=== PATIENT | female | born 1960 | race African-American/Black ===

== ENCOUNTER → 2023-08-17 08:47 | Outpatient (REF) | payer OTHER, SELFPAY | LOC: WDC 08:47 | PROVIDERS: ATTENDING PHYSICIAN Obstetrics & Gynecology; FAMILY PHYSICIAN Family Medicine | DX: Z12.31 Encounter for screening mammogram for malignant neoplasm of breast (principal) | CPT/HCPCS: 77063; 77067 ==

== ENCOUNTER → 2023-10-22 10:00 | Outpatient (REF) | payer OTHER, SELFPAY | LOC: WDC 10:00 | PROVIDERS: ATTENDING PHYSICIAN Surgery; FAMILY PHYSICIAN Family Medicine | DX: R92.2 Inconclusive mammogram (principal) | CPT/HCPCS: 76641 ==

== ENCOUNTER → 2023-10-23 08:04 | Outpatient (REF) | payer OTHER, SELFPAY | LOC: RAD 08:04 | PROVIDERS: ATTENDING PHYSICIAN Internal Medicine; FAMILY PHYSICIAN Family Medicine | DX: I10 Essential (primary) hypertension (principal) | CPT/HCPCS: 93975 ==

== ENCOUNTER 2023-11-26 10:05 | Emergency (ER) | payer OTHER, SELFPAY ==
[2023-11-26 10:12] VITALS: BP 140/78
--- NOTE | 2023-11-26 11:14 | ED.GENMED ---
History of Present Illness
General
Chief Complaint: Extremity Pain (non-traumatic)
Source: patient
Exam Limitations: none
Time Seen by Provider: 11/26/23 10:43
Nursing documentation reviewed up to this point in time: agreed with
History of Present Illness
History of Present Illness:
63 y/o F with h/o previous L TKR 1 year ago
fhx of dvt
here with left posterior knee pain x 1 month, worsening and last night she had some tingling in her toes while she was lying down so she got concerned since the pain is worsening that she could have a blood clot
no cp, sob, fever, redness, swelling
pt does have h/o varicose veins
she also has h/o patten's cyst
Past History
Past History
ED Past Medical History: HTN (atenolol 25 mg daily) and Other (Seasonal allergies , ovarian cyst)
ED Past Surgical History: Gynecological (In vitro procedures)
Social History
Tobacco: Non-smoker
Alcohol: Occasional
Personal:
Living: with family
Employment: Employed
Family History
Family History: Hypertension; Negative Diabetes, Early CAD, Asthma, Cancer or Sudden
Review of Systems
Review of Systems
Allergies reviewed?: Yes
All Other Systems: Not applicable
Phy Exam
Physical Exam
Physical Exam:
GENERAL: Alert , in no apparent distress, comfortable at rest
HEAD: NCAT
CV: 2+ DP PULSES B/L, regular, no edema
NEUROLOGICAL: Alert and oriented, no focal neuro deficits, , 5/5 strength, sensation intact, ambulation slight limp right leg
SKIN: Warm and dry, no skin changes, incision b/l anterior knees are well healed
MUSCULOSKELETAL: left knee normal inspection
no appreciated swelling
some varicosities posterior knee but nontnedner, do not suspect phlebitis
calf nontender
no swelling
perfused
normal pulse
nomral distal sensation
knee full rom
PSYCH: Normal and appropriate interaction.
Course
Orders/Labs/Results
Orders:
Orders
11/26/23 11:10
Bedside Glucose- Treatment ONCE
Venous Doppler Lwr Ext Left [US Periph Venous LOWER Ext LT] Urgent
Comment:
Reason For Exam: left post knee pain; eval dvt vs. bakers cyst
Vital Signs
Initial and Last Documented VS:
Initial Vital Signs
Temp Pulse Resp BP Pulse Ox
98.2 F 68 20 140/78 97
11/26/23 10:12 11/26/23 10:12 11/26/23 10:12 11/26/23 10:12 11/26/23 10:12
Last Documented Vital Signs
Temp Pulse Resp BP Pulse Ox
98.2 F 68 20 140/78 97
11/26/23 10:12 11/26/23 10:12 11/26/23 10:12 11/26/23 10:12 11/26/23 10:12
MDM/Problems Addressed
Differential Diagnosis Includes:
patten's cyst, dvt
MDM/Problems Addressed:
63 y/o F posterior left knee pain x 1 month, has varicose vein there chronically, no significant swelling but the pain seemed to be worsening and then she got some tingling in her foot last night so she wanted to be r/o for dvt which her mother had
h/o
pt has not had any cp, sob, leg sweling, color change, persitent parestehsais, cold foot
no exertional pain in her leg like claudication
just had blood work last week, no diabetes
on exam inspectio normal
mild tenderess posterior knee
normal pulse
nomral color
nontender calf
US shows a patten's cyst complex
no dvt
pt declined the accucheck becuase she had normal blood work last week
recommend compression with sean wrap
f/u with ortho outpatient.
*Critical Care Note
Total Time (30-74mins, 75-104mins- exclusive of procedures): Not Applicable
ED Attending Note
-
Portions of this chart may have been created with voice recognition software.� Occasional wrong word or��sound alike� substitutions may have occurred due to the inherent limitations of voice recognition software.
Discharge Plan
Departure
Patient Disposition: Home (Routine Discharge)
Date of Disposition: 11/26/23
Time of Disposition: 12:19
Patient with high blood pressure during this ER visit?: Yes
Condition: Fair
Covid-19: Not Applicable
Discharge Problem:
Patten's cyst of knee
Instructions: Patten's Cyst (DC)
Prescriptions:
No Action
atenolol 25 MG tablet
25 mg PO DAILY
hydrochlorothiazide 12.5 MG capsule
12.5 mg PO DAILY
ascorbic acid (vitamin C) [Vitamin C] 1,000 MG tablet
1,000 mg PO BID
flaxseed oil 1,000 MG capsule
1,000 mg PO DAILY
vitamin B complex 1 EACH tablet
1 ea PO DAILY
zinc 50 MG tablet
50 mg PO BID
cholecalciferol (vitamin D3) [Vitamin D3] 1,000 UNIT tablet
1,000 unit PO DAILY
Referrals:
Anjali Hassan MD [Family Provider] - Follow up in 5-7 days
Activity Restrictions/Additional Instructions:
You have a complex Patten's cyst in the posterior fossa of your left knee. You should touch base with your orthopedist regarding this. In the meantime you can use an Sean wrap to compress it. Warm compresses off-and-on and ibuprofen if you tolerate
it. Otherwise Tylenol for pain. Return for any concerns. Your ultrasound was negative for blood clot
Interventions
Interventions:
*Risk Screen - Suicide Last Done: 11/26/23 10:12
*General Assessment Last Done: 11/26/23 10:12
*Neglect/Abuse Screening Last Done: 11/26/23 10:12
ED- Fall Risk Assessment Last Done: 11/26/23 12:40
*ED COVID-19 Vaccine History Last Done: 11/26/23 12:40
*Nursing Disposition Last Done: 11/26/23 12:40
ED-Skin Assessment Last Done: 11/26/23 12:39
ED-Peripheral Vascular Assessment Last Done: 11/26/23 12:39
ED- Pulmonary Assessment Last Done: 11/26/23 12:39
ED-Musculoskeletal Assessment Last Done: 11/26/23 12:39
ED- Cardiac Assessment Last Done: 11/26/23 12:39
Discharge Date and Time
Discharge Date/Time: 11/26/23 12:41
Print Language: LUX[place]
== END 2023-11-26 12:41 | disposition home or self-care (01) ==
LOC: EMR 10:05
PROVIDERS: EMERGENCY PHYSICIAN Emergency Medicine; FAMILY PHYSICIAN Family Medicine
DX: M71.22 Synovial cyst of popliteal space [Baker], left knee (principal); R20.2 Paresthesia of skin; M79.605 Pain in left leg; I10 Essential (primary) hypertension; I83.92 Asymptomatic varicose veins of left lower extremity
CPT/HCPCS: 99284; 93971

== ENCOUNTER 2024-01-25 09:09 | Emergency (ER) | payer OTHER, SELFPAY ==
[2024-01-25 09:22] VITALS: BP 148/80
[2024-01-25 10:14] VITALS: BMI 25.9
--- NOTE | 2024-01-25 10:32 | ED.GENMED ---
History of Present Illness
General
Chief Complaint: Back Pain
Source: patient
Exam Limitations: none
Time Seen by Provider: 01/25/24 10:09
Nursing documentation reviewed up to this point in time: agreed with
History of Present Illness
History of Present Illness:
Patient is a 63-year-old female who presents with pain across her lower back. She noticed this about 1 week ago she believes she may have woken up this way and is not sure if she slept wrong. She denies any actual injury. It is worse with
movement if she does not move she does not feel the pain. She denies any lower extremity radiation. Denies any incontinence of bowel or bladder. She denies any other frequency urgency or dysuria. Denies hematuria. Denies any fever or chills.
She has been taken naproxen. She also has been using heating pad and reports that heating pad seems to work.
She has not taking anything for pain today.
Past History
Past History
ED Past Medical History: HTN (atenolol 25 mg daily) and Other (Seasonal allergies , ovarian cyst)
ED Past Surgical History: Gynecological (In vitro procedures)
Social History
Tobacco: Non-smoker
Alcohol: Occasional
Personal:
Living: with family
Employment: Employed
Family History
Family History: Hypertension; Negative Diabetes, Early CAD, Asthma, Cancer or Sudden
Review of Systems
Review of Systems
Allergies reviewed?: Yes
All Other Systems: ROS reviewed and negative except as documented in HPI and ROS
Constitutional: Reports no symptoms; Denies fever
ABD/GI: Reports no symptoms
: Denies incontinence
Musculoskeletal: Reports back pain (pain across lower back )
Skin: Reports no symptoms
Neurological: Reports no symptoms; Denies numbness
Psychiatric: Reports no symptoms
Phy Exam
General Physical Exam
General Presentation: no apparent distress
General age: appears stated age
General Skin: warm and dry
General Habitus: normal
General Mental: alert
General Hydration: appears well hydrated
Neurological Exam
Neurological Exam: alert and oriented x3
Musculoskeletal Exam
Musculoskeletal Exam: other (Normal inspection to lookback coordinator to b/l lumbar muscles )
Skin Exam
Skin Exam: normal color and warm/dry
Psychiatric Exam
Psychiatric Exam: normal mood/affect
Course
Orders/Labs/Results
Orders:
Orders
01/25/24 10:31
Ketorolac [Toradol] 30 mg IM NOW STA
Lidocaine [Lidocaine 4% Patch] 1 patch TOPICAL NOW STA
Apply Lidocaine patch(s) to:: low back
01/25/24 10:32
Acetaminophen [Tylenol] 1,000 mg PO NOW STA
01/25/24 11:02
Lumbar Spine Complete, 4 View [CR Lumbar Spine Comp Min 4 Vw*] Urgent
Comment:
Reason For Exam: pain
Vital Signs
Initial and Last Documented VS:
Initial Vital Signs
Temp Pulse Resp BP Pulse Ox
98.0 F 57 20 148/80 99
01/25/24 09:22 01/25/24 09:22 01/25/24 09:22 01/25/24 09:22 01/25/24 09:22
Last Documented Vital Signs
Temp Pulse Resp BP Pulse Ox
98.2 F 57 17 152/84 99
01/25/24 12:42 01/25/24 12:42 01/25/24 12:42 01/25/24 12:42 01/25/24 09:22
MDM/Problems Addressed
Differential Diagnosis Includes:
Not limited to lumbar strain muscle spasm
MDM/Problems Addressed:
Symptoms are consistent with muscle pain of lumbar region. Patient feeling much better here in the ER after medicated for s/s . will d/c on muscle relaxer as needed
*Pulse Oximetry
Patient hypoxic: no
*Critical Care Note
Total Time (30-74mins, 75-104mins- exclusive of procedures): Not Applicable
ED Attending Note
-
Portions of this chart may have been created with voice recognition software.� Occasional wrong word or��sound alike� substitutions may have occurred due to the inherent limitations of voice recognition software.
Discharge Plan
Departure
Patient Disposition: Home (Routine Discharge)
Date of Disposition: 01/25/24
Time of Disposition: 12:32
Patient with high blood pressure during this ER visit?: Yes
Condition: Fair
Covid-19: Not Applicable
Discharge Problem:
Low back pain
Instructions: Low Back Pain (DC), BLOOD PRESSURE
Prescriptions:
New
cyclobenzaprine 10 mg tablet
10 mg PO Q8H PRN (Reason: muscle spasm) Qty: 10 0RF
lidocaine 5 % adhesive patch,medicated
1 patch topical DAILY Qty: 15 0RF
No Action
atenolol 25 MG tablet
25 mg PO DAILY
hydrochlorothiazide 12.5 MG capsule
12.5 mg PO DAILY
ascorbic acid (vitamin C) [Vitamin C] 1,000 MG tablet
1,000 mg PO BID
flaxseed oil 1,000 MG capsule
1,000 mg PO DAILY
vitamin B complex 1 EACH tablet
1 ea PO DAILY
zinc 50 MG tablet
50 mg PO BID
cholecalciferol (vitamin D3) [Vitamin D3] 1,000 UNIT tablet
1,000 unit PO DAILY
Referrals:
Anjali Hassan MD [Family Provider] -
Activity Restrictions/Additional Instructions:
As discussed you may continue with warm moist heat. You may take your naproxen or Motrin in addition a prescription for muscle laxer sent to your pharmacy to take only as directed. This may cause drowsiness. No driving or drink alcohol while
taking medication.
In addition a prescription for lidocaine patch was sent to your pharmacy take medications as directed. Follow-up with your family doctor neck several days and return if any worsening of symptoms
Interventions
Interventions:
*Risk Screen - Suicide Last Done: 01/25/24 10:15
*General Assessment Last Done: 01/25/24 10:15
*Neglect/Abuse Screening Last Done: 01/25/24 10:15
ED- Fall Risk Assessment Last Done: 01/25/24 10:14
*ED COVID-19 Vaccine History Last Done: 01/25/24 10:14
*Nursing Disposition Last Done: 01/25/24 12:42
ED-Musculoskeletal Assessment Last Done: 01/25/24 10:17
Discharge Date and Time
Discharge Date/Time: 01/25/24 12:43
Print Language: SCOTTISH
[2024-01-25] MEDS: TYLENOL 1000 MG PO (10:38)
[2024-01-25] MEDS: TORADOL 30 MG IM (10:38)
[2024-01-25] MEDS: LIDOCAINE 4% PATCH 1 PATCH TOPICAL (10:38)
[2024-01-25 12:42] VITALS: BP 152/84
== END 2024-01-25 12:43 | disposition home or self-care (01) ==
LOC: EMR 09:09
PROVIDERS: EMERGENCY PHYSICIAN Emergency Medicine; FAMILY PHYSICIAN Family Medicine
DX: M54.50 Low back pain, unspecified (principal); I10 Essential (primary) hypertension; E11.9 Type 2 diabetes mellitus without complications; Z82.49 Family history of ischemic heart disease and other diseases of the circulatory system; I25.10 Atherosclerotic heart disease of native coronary artery without angina pectoris; J45.909 Unspecified asthma, uncomplicated
CPT/HCPCS: 99283; 96372; 72110

== ENCOUNTER → 2024-03-26 12:56 | Outpatient (REF) | payer MEDICARE, SELFPAY | LOC: RAD 12:56 | PROVIDERS: ATTENDING PHYSICIAN Obstetrics & Gynecology; FAMILY PHYSICIAN Family Medicine | DX: Z13.820 Encounter for screening for osteoporosis (principal); Z78.0 Asymptomatic menopausal state; M85.89 Other specified disorders of bone density and structure, multiple sites | CPT/HCPCS: 77080 ==

== ENCOUNTER → 2024-07-20 10:18 | Outpatient (REF) | payer MEDICARE, SELFPAY | LOC: RAD 10:18 | PROVIDERS: ATTENDING PHYSICIAN Orthopaedic Surgery; FAMILY PHYSICIAN Family Medicine | DX: Z96.652 Presence of left artificial knee joint (principal); M25.562 Pain in left knee | CPT/HCPCS: 78315; A9503 ==

== ENCOUNTER → 2024-08-21 08:31 | Outpatient (REF) | payer MEDICARE, SELFPAY | LOC: WDC 08:31 | PROVIDERS: ATTENDING PHYSICIAN Obstetrics & Gynecology; FAMILY PHYSICIAN Family Medicine | DX: Z12.31 Encounter for screening mammogram for malignant neoplasm of breast (principal) | CPT/HCPCS: 77063; 77067 ==